=== PATIENT | male | born 1960 | race Caucasian/White ===

== ENCOUNTER → 2024-01-23 10:57 | Outpatient (REF) | payer BC, SELFPAY | LOC: HWRAD 10:57 | PROVIDERS: ATTENDING PHYSICIAN Specialist; FAMILY PHYSICIAN Family Medicine | DX: N39.0 Urinary tract infection, site not specified (principal) | CPT/HCPCS: 76770 ==

== ENCOUNTER → 2025-01-06 14:05 | Outpatient (REF) | payer BC, SELFPAY | LOC: DHSLP 14:05 | PROVIDERS: ATTENDING PHYSICIAN Family Medicine | DX: G47.19 Other hypersomnia (principal); G47.00 Insomnia, unspecified; R06.83 Snoring | CPT/HCPCS: 95800 ==